=== PATIENT | female | born 1950 | race African-American/Black ===

== ENCOUNTER 2017-03-03 15:52 | Emergency (ER) | payer BC ==
--- NOTE | ~2017-03-03 | CR72 ---
[facility] A Service of [facility] & [facility] RADIOLOGY TEXT RESULTS PATIENT: DESEAN ROMO LOCATION: [facility] : 48 UNIT #: [id number] AGE: [address]: Parish Garnett MD SEX: F ORDER DR: [id number] [facility] [address] [place], [place] [address] [id number] E MR#: [id number] Acc #: [id number] NAME: DESEAN ROMO. : 1950 SEX: F STUDY DATE/TIME: 03/03/2017 16:01 UNIT: [facility] ROOM: STUDY DESCRIPTION: CR Chest Single View Portable Attending Physician: Parish Garnett M.D. Ordering Physician: Parish Garnett M.D. Primary Care Physician: No Primary Care Physician MEDICAL IMAGING REPORT This report is preliminary unless electronic signature is present EXAM Single view chest. DATE OF EXAM 03/03/2017 INDICATIONS Cough and congestion. Syncope for 4 days. FINDINGS Single portable AP view of the chest without comparison. Heart and mediastinal contours normal. Lungs are clear. IMPRESSION Negative chest radiograph. Dictated by... Danial Monterroso M.D. THIS IS AN ELECTRONICALLY VERIFIED REPORT Danial Monterroso M.D. at 03/07/2017 9:42 AM LEXY/ketty TD: 03/03/2017 22:00 JOB #: [id number] MEDICAL IMAGING REPORT Page 1 of 1 COPY
--- NOTE | ~2017-03-03 | EKG ---
PATIENT: DESEAN ROMO UNIT #: [id number] Ventricular Rate: 89 BPM Atrial Rate: 89 BPM P-R Interval: 164 ms QRS Duration: 82 ms Q-T Interval: 370 ms QTC Calculation(Bezet): 450 ms P [place]: 75 degrees Calculated R [place]: 70 degrees Calculated T [place]: 50 degrees Diagnosis Line: Normal sinus rhythm Diagnosis Line: Possible Left atrial enlargement Diagnosis Line: Borderline ECG Diagnosis Line: No previous ECGs available Diagnosis Line: Confirmed by GENIE THOMPSON MD ([id number]) on 03/03/2017 Diagnosis Line: 7:25:57 PM INTERPRETING MD: JAY DOWNEY
[2017-03-03 15:24] LABS: URINE SOURCE CLEAN CATCH
[2017-03-03 15:24] LABS: POC - CKMB 1.6 ng/mL (0.0-7.9); POC - TROPONIN <0.05 ng/mL (<=0.05)
[2017-03-03 15:27] LABS: BASOPHIL# 0.1 X10e3 (0-0.3); BASOPHIL% 0.8 % (0-2.5); EOSINOPHIL# 0.2 X10e3 (0-0.7); EOSINOPHIL% 2.6 % (0.0-7.0); HEMATOCRIT 38.4 % (35.0-45.0); HEMOGLOBIN 12.4 gm/dL (12.0-16.0); LYMPHOCYTE# 2.1 X10e3 (1.0-3.5); MEAN CELL VOLUME 85.4 FL (83-96); MEAN CORPUSCULAR HEMOGLOBIN 27.7 PG (28-34); MEAN CORPUSCULAR HGB CONC 32.4 g/dL (30-36); MEAN PLATELET VOLUME 8.3 FL (6.5-11.5); MONOCYTE# 0.7 X10e3 (0-1.0); NEUTROPHIL# 4.4 X10e3 (1.5-7.1); NEUTROPHIL% 58.6 % (40-75); PLATELET COUNT 332 X10e3 (140-420); RED BLOOD COUNT 4.49 X10e (3.90-5.30); WHITE BLOOD COUNT 7.4 X10e3 (4.0-10.5)
[2017-03-03 15:35] LABS: URINE APPEARANCE CLEAR; URINE BILIRUBIN NEG (NEG); URINE BLOOD NEG (NEG); URINE COLOR DK YELLOW; URINE GLUCOSE NEG (NEG); URINE KETONE TRACE (NEG); URINE LEUKOCYTE ESTERASE TRACE (NEG); URINE NITRATE NEG (NEG); URINE PH 5.5 (5-8); URINE PROTEIN NEG (NEG); URINE SPECIFIC GRAVITY 1.028 (1.003-1.035)
[2017-03-03 15:36] LABS: DIFF IND NO
[2017-03-03 15:38] LABS: ALBUMIN SERUM 3.8 g/dL (3.5-5.0); BILIRUBIN, DIRECT 0.1 mg/dL (0.0-0.2); BILIRUBIN,INDIRECT 0.9 mg/dL (0.0-0.9); BUN/CREATININE RATIO 18.88; CALCIUM SERUM 9.3 mg/dL (8.4-10.2); CREATININE SERUM 0.9 mg/dL (0.6-1.4); GLOM FILT RATE Estimated 76.7 mL/min (>60); POTASSIUM 4.1 mmol/L (3.5-5.1); PROTEIN TOTAL SERUM 7.5 g/dL (6.0-8.3)
[2017-03-03 15:38] LABS: CULTURE INDICATED? YES; URINE BACTERIA AUWI NEG (NEGATIVE); URINE SQUAMOUS EPITHELIAL CELL NONE SEEN /[HPF]
[~2017-03-03 15:52] MED LIST: ASPIRIN81 M1 PO; BENICAR HCT 40-1 TA1 PO; ZOCOR PO
[2017-03-03 16:02] LABS: INFLUENZA A NEG (NEG); INFLUENZA B NEG (NEG)
[2017-03-03 17:06] LABS: POC - CKMB 1.4 ng/mL (0.0-7.9); POC - TROPONIN <0.05 ng/mL (<=0.05)
== END 2017-03-03 18:05 | disposition home or self-care (01) ==
LOC: CED 15:52
PROVIDERS: Emergency Medicine
DX: R55 Syncope and collapse (principal); N39.0 Urinary tract infection, site not specified; I10 Essential (primary) hypertension; E78.00 Pure hypercholesterolemia, unspecified
CPT/HCPCS: 36415; 71010; 80048; 80076; 81003; 82553; 84484; 85025; 87086; 87804; 93005; 96360; 99285